=== PATIENT | female | born 1965 | race Hispanic/Latino ===

== ENCOUNTER 2016-08-06 12:22 | Day surgery (SDC) | payer OTHER ==
[~2016-08-06] VITALS: Ht 152.4 cm; Wt 107.0 kg
[2016-08-06] VITALS (9 sets, daily range): BP systolic 117–148; BP diastolic 54–77; PULSE 70–94; RESP 13–20; O2SAT 96–100
[~2016-08-06 12:22] MED LIST: FERR-83 PO; Lactated Ringer's 1,000 ML IV SCH; MEDR10TA9 PO; OMEP20CA11 PO
[2016-08-06] MEDS ORDERED: Propofol 10,000 mCg/mL 20 mL Inj ONE (12:23)
[2016-08-06] MEDS ORDERED: fentaNYL-PF 50 mCg/mL 2 mL Inj ONE (12:23)
[2016-08-06] MEDS ORDERED: Ondansetron 2 mg/mL 2 mL Inj ONE (12:23)
[2016-08-06] MEDS ORDERED: Lidocaine PF 1% 30 mL Inj ONE (12:23)
[2016-08-06] MEDS ORDERED: EPHEDrine/NS 5 mg/mL 5 mL Syringe ONE (12:23)
[2016-08-06] MEDS ORDERED: Lactated Ringer's 500 ML IV PRN (13:54)
[2016-08-06] MEDS ORDERED: Lactated Ringer's 1,000 ML IV SCH (13:54)
--- NOTE | 2016-08-06 13:54 | PCM.HPANE ---
Patient Data Date of Service: Aug 06, 2016 Surgeon Admitting Provider: Attending Provider:Amy Lawler MD Primary Care Physician:Aissatou Jacobs MD Other Provider:Marry Vee Anesthesia Reason for Visit Abnormal Uterine Bleeding, Submucous Leiomyoma Of Ht/WT & BMI Height (Feet): 5 Height (Inches): 0 Weight (Kilograms): 107 Body Mass Index 46.00 Allergies Coded Allergies: hydrocodone (Verified Allergy, Unknown, diarrhea, nausea, 08/03/16) Past Anesthesia History Anesthesia History: Denies:: Abnormal Airway, Anesthesia Reactions, Difficult Intubation, Fam Anesthesia Reaction Diabetes History Hx Diabetes?: No MRSA MRSA: No Medications Hypertension Medication: No Home Meds Incl Beta Montse: No Reported Medications Omeprazole 20 Mg Capsule.dr20 Mg PO DAILY Ref 0 08/03/16 Ferrous Sulfate 325 Mg [id number] Mg PO DAILY 30 Days Ref 0 08/03/16 Medroxyprogesterone 10 Mg Iscief14 Mg PO DAILY 08/03/16 History History of ENT Problems?: No HEENT History: Denies:: Abnormal Airway Cataracts Difficult Intubation Dysphagia Glaucoma Hearing Problem Sinus Problem TMJ Teeth Condition: Broken Teeth Other HEENT Pertinent History: chipped tooth, tooth waiting to be extracted august Hx of Heart Problems?: Yes Cardiovascular History: Positive for:: Chest Pain (ATYPICAL, ONE EPISODE) Denies:: AICD Edema Heart Murmur Hypertension Irregular Heartbeat Pacemaker Peripheral Vascular Hx of Respiratory Problem?: No Respiratory History: Denies:: Asthma COPD Emphysema Oxygen Administration Pneumonia Tuberculosis Use of C-PAP Machine Use of Inhalers / NEBS Hx Neurologic Problems?: No Neurological History: Denies:: CVA Dementia Headaches Multiple Sclerosis Parkinson's Disease Seizures Hx of GI Problems?: Yes Gastrointestinal History: Positive for:: Gastroesphageal Reflux Heartburn Denies:: Gall Bladder Disease Hiatal Hernia Liver Disease Rectal Bleeding Hx of Problems?: No Genitourinary History: Denies:: Kidney Stones Urinary Tract Infection HX of Peritoneal Dialysis: No Female Hx: Denies:: Currently (tubal ) Problems with Breasts? Skin History: Denies:: History Skin Disorders? Pressure Ulcers Hx Musculoskeletal Problems?: Yes Musculoskeletal History: Positive for:: Back Injury (doing physical therapy now, work related injury) Denies:: Fibromyalgia Joint Replacement Musculoskeletal Trauma Myasthenia Gravis Osteoarthritis Rheumatoid Arthritis Hx of Psycho/Social Problems?: No Psycho Social History: Denies:: Anxiety Hx Depression Hx Surgeries?: Yes (tubal, hernia) Hx Any Other Health Problems?: Yes Other History: Denies:: Cancer Endocrine Disease Hospitalization Thyroid Disease History Blood Transfusions: Positive for:: Accept Blood Products? Denies:: Blood Transfusions Hx Diabetes: No Hx Alcohol Use: NoHx Substance Use: NoHave You Smoked inLast 12 mo: No Stop/Bang S-Snoring: Do You Snore Loudly: No T-Tired: feel tired, fatigued: No O-Obsered: Observed not breath: No P-Blood Pressure: treated: No B- Body Mass Index > 35 kg/m2: Yes A- Age over 50: No N- Neck Large Circumference: Yes G- Gender Male: No GORDON Total Score: 2 GORDON Risk Assessment: Low Risk, <3 Yes Risk Assessment Category Category 1A: Patient has history of documented sleep apnea, and HAS NOT received any narcotic, sedative or anesthesia administration during this stay. Category 1B: Patient has history of documented sleep apnea, and HAS received any narcotic , sedative or anesthesia administration during this stay Category 2: Patient has SUSPECTED Obstructive Sleep Apnea, and HAS received any narcotic , sedative or anesthesia administration during this stay. Category 3: Patient has SUSPECTED Obstructive Sleep Apnea and HAS NOT received narcotic, sedative or anesthesia administration during this stay. Category 4: Outpatient in Procedural Areas with known sleep apnea or who screen positive for High Risk via the STOP/BANG questionnaire. Exam Exam Vital Signs Vital Signs Date Time Temp Pulse Resp B/P Pulse Ox O2 Delivery O2 Flow Rate FiO2 08/06/16 13:40 36.0 70 18 132/66 96 Room Air General Appearance: Alert, Oriented X3, Cooperative HEENT/AIRWAY: MP 2, Neck Movement (ok, limited by pain), Mouth Opening (Wide) Lungs: Clear to Auscultation, Normal Air Movement Heart: Regular Rate/Rhythm, Normal S1, Normal S2 Plan Impression Patient chart reviewed, patient interviewed and anesthestic plan with risks, benefits, and alternatives discussed, and informed consent obtained. NPO Status: 08/05 2199 ASA Physical Status: ASA3 Severe Disease (morbid obesity) Anesthetic Plan: GA Bene/Risks/Altern/Consents: Yes HP Complete Prior to Induction: Yes Kofi Villa MD Aug 06, 2016 13:54
[2016-08-06] MEDS ORDERED: HYDROmorphone 1 mg/mL Inj IVPUSH PRN (13:55)
[2016-08-06] MEDS ORDERED: Dexamethasone 4 mg/mL Inj IVPUSH PRN (13:55)
[2016-08-06] MEDS ORDERED: Atropine 0.4 mg/mL Inj IVPUSH PRN (13:55)
[2016-08-06] MEDS ORDERED: Phenylephrine 10,000 mCg/mL Inj IVPUSH PRN (13:55)
[2016-08-06] MEDS ORDERED: hydrALAZINE 20 mg/mL Inj IVPUSH PRN (13:55)
[2016-08-06] MEDS ORDERED: EPHEDrine Sulfate 50 mg/mL Inj IVPUSH PRN (13:55)
[2016-08-06] MEDS ORDERED: MetoCLOpramide 5 mg/mL 2 mL Inj IVPUSH PRN (13:55)
[2016-08-06] MEDS ORDERED: Ondansetron 2 mg/mL 2 mL Inj IVPUSH PRN (13:55)
[2016-08-06] MEDS ORDERED: fentaNYL-PF 50 mCg/mL 2 mL Inj IVPUSH PRN (13:55)
[2016-08-06] MEDS ORDERED: Labetalol 5 mg/mL 4 mL Inj IV PRN (13:55)
[2016-08-06] MEDS ORDERED: oxyCODONE-Acetamin 5-325 mg Tablet PO PRN (14:15)
[2016-08-06] MEDS ORDERED: Lactated Ringer's 1,000 ML IV ONE ×2 (15:00→16:56)
--- NOTE | 2016-08-06 16:23 | PCM.ANEP1 ---
Post Anesthesia Phase 1 PACU Phase 1 Assessment Date of Service: Aug 06, 2016 Vital Signs Vital Signs Date Time Temp Pulse Resp B/P Pulse Ox O2 Delivery O2 Flow Rate FiO2 08/06/16 13:40 36.0 70 18 132/66 96 Room Air Anesthetic Administered: GA Level of Alertness: Sleepy, easy to arouse LINDO's with Equal Strength: Yes Pain: No Nausea or Vomiting: No Oxygen Delivery: Simple Mask Lungs: Normal Air Movement Kofi Villa MD Aug 06, 2016 16:23
--- NOTE | 2016-08-06 16:28 | PCM.DIOB ---
Obstetrical Disch Instruction Date of Service: Aug 06, 2016 Dates of Hospitalization Date of Hospital Admission Providers Admitting Physician: Primary Care Physician: Aissatou Jacobs MD Attending Physician: Amy Lawler MD Discharge Diagnosis Discharge Diagnosis Status post dilation and curettage and myosure resection of the submucosal fibroid. Post Operative diagnosis Status post dilation and curettage and myosure resection of the submucosal fibroid. Problems: Diet Discharge Diet: No restrictions Activity Discharge Activity-General: Pelvic Rest for 6 weeks (No sex , douching or tampons. ), No lifting >10 pounds for 4-6 weeks Dressing and Incisional Care Hygiene: May shower, Other Follow Up Plan Follow-up Provider (F9): Amy Lawler MD Follow-up appointment: Weeks (Two) Call your provider for: Fever or Chills, Shortness of breath, Heavy vaginal bleeding, Heavy bleeding, Epigastric pain, Excessive constipation, Vaginal discomfort Amy Lawler MD Aug 06, 2016 16:28
--- NOTE | 2016-08-06 16:33 | PCM.ANEP2 ---
Post Anesthesia Evaluation ASA/CMS Post Anesthesia Date of Service: Aug 06, 2016 VS in Patient's Normal Range?: Yes Resp Stable; Airway Patent?: Yes CV Function & Hydration Stable: Yes Mental Status Recovered?: Yes Pain control Satisfactory?: Yes N/V Control Satisfactory?: Yes Kofi Villa MD Aug 06, 2016 16:33
--- NOTE | 2016-08-06 17:48 | OP ---
[address] [address] OPERATIVE REPORT PATIENT: SYDNI PETERSON : 1965 MR#: [id number] ADMIT: 08/06/2016 JOB ID: [id number] DATE OF SURGERY: 08/06/2016 PREOPERATIVE DIAGNOSIS(ES): Abnormal uterine bleeding. Submucosal uterine fibroid. POSTOPERATIVE DIAGNOSIS(ES): Abnormal uterine bleeding. Submucosal uterine fibroid. SURGEON: Amy Lawler MD PLASTIC BOAT BUFFER: Brando Villegas MD PROCEDURE: 1. Dilation and curettage. 2. MyoSure resection of submucosal uterine fibroid. COMPLICATIONS: None. IMPLANTS: None. BLOOD PRODUCT ADMINISTRATION: No. ESTIMATED BLOOD LOSS: 100 mL. INTRAVENOUS FLUIDS: 800 mL. URINE OUTPUT: 75 mL of clear urine was straight cathed prior to start of the procedure. ANESTHESIA: General. SPECIMENS: 1. Submucosal uterine fibroid. 2. Endometrial curettings Both were sent to Pathology. FINDINGS: Exam under anesthesia revealed an anteverted, anteflexed, mildly enlarged uterus approximately 10 weeks in size. No palpable adnexal masses. Limited exam by the body habitus. Uterus was sounded to 10 cm. Hysteroscopic finding of a posterior submucosal uterine fibroid approximately 3 cm in size. Was resected with MyoSure device approximately 90% to 95% of the fibroid was resected. The total fluid deficit 900 mL. PROCEDURE IN DETAIL: After informed consent was obtained, the patient was taken to the operation room. She was placed under general anesthesia. Then, she was placed in dorsal lithotomy position. She was prepped and draped in usual sterile fashion for pelvic procedure. Heavy weighted speculum was placed in the posterior vaginal vault. Anterior retractor was placed with good visualization of the cervix. Anterior lip of the cervix was grasped with single-tooth tenaculum. The cervix was gradually dilated with Hegar dilator up to size 6. The uterus was sounded to 10 cm. Then, a 6 mm scope was introduced into the uterine cavity with the findings as mentioned above. Then, MyoSure resection was performed, resecting the submucosal uterine fibroid gradually up to a point where fluid deficit was up to 900 with limited visualization and decision was made to terminate the procedure as the resection part of the procedure was satisfactory. Hysteroscope was removed. Single- tooth tenaculum was removed and the cervix was hemostatic. Speculum and all instruments were removed from the vagina. All instrument, needle, and sponge counts were correct x2. The patient tolerated the procedure well and was transferred to the postop recovery in stable condition. Amy Garcia MD, was scrubbed and present for the entire procedure. RANI
--- NOTE | 2016-08-10 16:20 | PATH ---
SURGICAL PATHOLOGY Attending Physician:Amy Lawler CASE STATUS: Signed Out PATIENT NAME: SYDNI PETERSON PID: [id number] : 1965 DATE COLLECTED:08/06/2016 23:18 SPECIMEN: 1: Uterus, Fibroid (separate surgical procedure) 2: Endometrium, Curettage CLINICAL HISTORY: SUBMUCOSAL FIBROID 1). SUBMUCOUS FIBROID 2). ENDOMETRIAL CURETTINGS FINAL DIAGNOSIS: 1.SUBMUCOUS FIBROID: MULTIPLE FRAGMENTS OF SMOOTH MUSCLE TUMOR AND SMALL FRAGMENTS OF ENDOMETRIUM, CONSISTENT WITH SUBMUCOSAL LEIOMYOMA. NO EVIDENCE OF MALIGNANCY. 2.ENDOMETRIAL CURETTINGS: BLOOD AND SCANT ENDOMETRIAL TISSUE, NEGATIVE FOR HYPERPLASIA, ATYPIA AND NEOPLASIA. ICD10 CODE D25.0 GROSS DESCRIPTION: The specimen is received in two formalin filled containers labeled with the patient's name. 1). The specimen is sublabeled "submucous fibroid" and consists of multiple portions of tissue which aggregate to 4.0 x 3.0 x 1.0 CM. [employer] sections are submitted in cassettes 1A-1D. 2). The specimen is sublabeled "endometrial curetting" and consists of multiple portions of tissue and clotted blood which aggregate to 2.5 x 2.0 x 0.6 CM. The specimen is entirely submitted in cassettes 2A, 2B. [place]07/[place] [facility] [place] DES[place]: See diagnosis. ICD-9 CODES: CPT CODES: 1: 36704 2: 75137 Electronically Signed Out Imelda Mccarty MD [facility] Pathology [facility] [address], [place] [address] Technical component performed at [facility], [facility] [address], [place], [address]
== END 2016-08-06 23:59 | disposition home or self-care (01) ==
LOC: SAS 12:22
PROVIDERS: ATTEND Obstetrics & Gynecology
DX: D25.0 Submucous leiomyoma of uterus (principal); N93.9 Abnormal uterine and vaginal bleeding, unspecified; E66.01 Morbid (severe) obesity due to excess calories; Z68.42 Body mass index [BMI] 45.0-49.9, adult
CPT/HCPCS: 58561; J2405; J3010; J7120